=== PATIENT | male | born 1950 | race Caucasian/White ===

== ENCOUNTER 2023-08-15 13:09 | Inpatient (IN) ==
[2023-08-15] MEDS ORDERED: Lorazepam PYXIS KEY PRN ×2 (13:25→19:30)
[2023-08-15] MEDS ORDERED: LORazepam 2 mg VIAL 1 ml ONE ×2 (13:26→13:30)
[2023-08-15] MEDS: LORazepam 2 mg VIAL 1 ml IM ONE (13:41)
[2023-08-15 14:45] LABS: ABS Basophils 0.1 10^3/uL (0.0-0.1); ABS Monocytes 0.7 10^3/uL (0.0-1.1); ABS Neutrophils 6.6 10^3/uL (1.5-7.6); Eosinophil % 0.4 %; Hematocrit 41.7 % (38-53); Hemoglobin 14.1 g/dL (13.2-16.3); Lymphocyte % 11.9 %; Mean Corpuscular Hemoglobin 31.4 pg (27-33); Mean Corpuscular Hgb Conc 33.7 g/dL (31-36); Mean Corpuscular Volume 93.2 fL (80-97); Mean Platelet Volume 8.2 fL (7.5-11.2); Platelet Count 288 10^3/uL (150-450); Red Blood Count 4.47 10^6/uL (4.06-5.63); Red Cell Distribution Width 12.7 % (12-17); White Blood Count 8.3 10^3/uL (3.6-10.2)
[2023-08-15 15:05] LABS: INR 1.15 (0.83-1.13)
[2023-08-15 15:09] LABS: High Sens Troponin Baseline 16 pg/mL (<20)
[2023-08-15 15:36] LABS: ALT 15 U/L (7-52); AST 33 U/L (13-39); Acetaminophen < 15 mcg/mL; Albumin 4.3 g/dL (3.2-5.2); Albumin/Globulin Ratio 1.7 (1-3); Alcohol, S < 13 mg/dL (<13); Alkaline Phosphatase 63 U/L (35-149); Anion Gap 9 mmol/L (2-16); Blood Urea Nitrogen 32 mg/dL (6-24); C Reactive Protein 9.06 mg/L (<8.01); CO2 Carbon Dioxide 29 mmol/L (22-32); Calcium 9.2 mg/dL (8.6-10.3); Chloride 103 mmol/L (101-111); Creatine Kinase 702 U/L (10-223); Creatinine, Serum 0.75 mg/dL (0.67-1.17); Globulin 2.6 g/dL (2-4); Glucose 104 mg/dL (70-100); Lipase 11 U/L (11.0-82.0); Potassium 3.6 mmol/L (3.5-5.0); Salicylate < 2.50 mg/dL (<30); Sodium 141 mmol/L (135-145); Total Bilirubin 0.4 mg/dL (0.2-1.0); Total Protein 6.9 g/dL (6.4-8.9); eGFR CKD-EPI 95.9 (>60)
[2023-08-15 15:49] LABS: TSH Ultra Thyroid Stim Horm 2.28 mcIU/mL (0.34-5.60)
[2023-08-15 16:57] LABS: High Sensitivity Troponin 1 Hr 14 pg/mL (<20)
[2023-08-15] MEDS: NS 0.9% 1000 ml BAG 1,000 ML IV ONE (19:47)
[2023-08-15] MEDS: LORazepam 2 mg VIAL 1 ml IV PUSH ONE (19:47)
[2023-08-16 01:06] LABS: Urine Appearance Clear; Urine Bacteria Absent /HPF (Absent); Urine Bilirubin Negative (Negative); Urine Blood 1+ (Negative); Urine Color Light-Yellow; Urine Glucose Negative (Negative); Urine Ketones 2+ (Negative); Urine Nitrite Negative (Negative); Urine Protein Trace (Negative); Urine Red Blood Cell 3+(>10/hpf) /HPF (0-Trace); Urine Specific Gravity >1.050 (1.002-1.030); Urine Urobilinogen Negative (Negative); Urine White Blood Cell Trace(0-5/hpf) /HPF (0-Trace)
[2023-08-16 01:22] LABS: Urine Benzodiazepine Screen None Detected (None Detect); Urine Cannabinoids Screen Presumptive Positive (None Detect); Urine Opiates Screen None Detected (None Detect)
[2023-08-16] MEDS: NS 0.9% 1000 ml BAG 1,000 ML IV SCH (01:23)
[2023-08-16] MEDS: Enoxaparin 40 MG/0.4 ML SYR SUBCUT SCH (01:23)
[2023-08-16] MEDS ORDERED: Haloperidol 5 mg/ml SDV IV/IM 5 MG/ML AMP IV SLOW PU PRN (08:22)
[2023-08-16 09:53] LABS: ABS Basophils 0.1 10^3/uL (0.0-0.1); ABS Eosinophils 0.1 10^3/uL (0.0-0.5); ABS Lymphocytes 1.6 10^3/uL (1.0-4.8); ABS Monocytes 0.8 10^3/uL (0.0-1.1); ABS Neutrophils 7.9 10^3/uL (1.5-7.6); ABS Nucleated RBC 0.01 10^3/ul; Eosinophil % 1.1 %; Hematocrit 43.3 % (38-53); Hemoglobin 14.6 g/dL (13.2-16.3); Lymphocyte % 15.7 %; Mean Corpuscular Hemoglobin 31.8 pg (27-33); Mean Corpuscular Hgb Conc 33.7 g/dL (31-36); Mean Corpuscular Volume 94.2 fL (80-97); Mean Platelet Volume 8.2 fL (7.5-11.2); Nucleated Red Blood Cells % 0.1 %/100WBC (0.0-0.8); Platelet Count 265 10^3/uL (150-450); Red Blood Count 4.59 10^6/uL (4.06-5.63); Red Cell Distribution Width 13.1 % (12-17); White Blood Count 10.5 10^3/uL (3.6-10.2)
[2023-08-16 10:26] LABS: Calcium 8.5 mg/dL (8.6-10.3); Creatinine, Serum 0.67 mg/dL (0.67-1.17); Potassium 3.6 mmol/L (3.5-5.0); eGFR CKD-EPI 99.2 (>60)
[2023-08-16] MEDS ORDERED: Thiamine IV 100 MG/ML VIAL (only for Bannana Bags !) IVPB SCH (14:00)
[2023-08-16] MEDS: Thiamine IV 500 MG in NS 0.9% 250 ML (Wernicke-Korsakoff) IV SCH (17:53)
[2023-08-16] MEDS: Iohexol 350 (CONTRAST) 500 ML MDV IV ONE (22:34)
[2023-08-16] MEDS: cefTRIAXone 1 gm/50 mL D5W 1 GM/50 ML BAG IV SCH (22:41)
[2023-08-17] MEDS: Benzocaine/Menthol LOZ PO PRN (00:49)
[2023-08-17 06:17] LABS: ABS Basophils 0.1 10^3/uL (0.0-0.1); ABS Eosinophils 0.1 10^3/uL (0.0-0.5); ABS Lymphocytes 1.5 10^3/uL (1.0-4.8); ABS Monocytes 0.7 10^3/uL (0.0-1.1); ABS Neutrophils 5.8 10^3/uL (1.5-7.6); Eosinophil % 1.5 %; Hematocrit 38.6 % (38-53); Hemoglobin 13.2 g/dL (13.2-16.3); Lymphocyte % 18.2 %; Mean Corpuscular Hemoglobin 31.8 pg (27-33); Mean Corpuscular Hgb Conc 34.1 g/dL (31-36); Mean Corpuscular Volume 93.1 fL (80-97); Mean Platelet Volume 8.7 fL (7.5-11.2); Platelet Count 248 10^3/uL (150-450); Red Blood Count 4.15 10^6/uL (4.06-5.63); Red Cell Distribution Width 12.8 % (12-17); White Blood Count 8.1 10^3/uL (3.6-10.2)
[2023-08-17 06:32] LABS: Calcium 7.8 mg/dL (8.6-10.3); Creatinine, Serum 0.63 mg/dL (0.67-1.17); Magnesium 1.9 mg/dL (1.9-2.7); Potassium 3.6 mmol/L (3.5-5.0); eGFR CKD-EPI 101.1 (>60)
[2023-08-17 18:53] LABS: HIV 4th Generation Nonreactive (Nonreactive)
[2023-08-18] MEDS ORDERED: Thiamine IV 500 MG in NS 0.9% 250 ML (Wernicke-Korsakoff) IV SCH (15:00)
[2023-08-18] MEDS: Thiamine IV 500 MG in NS 0.9% 250 ML (Wernicke-Korsakoff) IV SCH (15:14)
[2023-08-19 06:45] LABS: Calcium 8.7 mg/dL (8.6-10.3); Creatinine, Serum 0.63 mg/dL (0.67-1.17); HDL Cholesterol 49.8 mg/dL; Potassium 3.9 mmol/L (3.5-5.0); eGFR CKD-EPI 101.1 (>60)
[2023-08-19 08:29] LABS: C Reactive Protein 8.45 mg/L (<8.01)
[2023-08-19] MEDS: Thiamine IV 500 MG in NS 0.9% 250 ML IV SCH (10:53)
[2023-08-19] MEDS ORDERED: Haloperidol 5 mg/ml SDV IV/IM 5 MG/ML AMP IM PRN (17:58)
[2023-08-20 19:14] VITALS: BP 152/79
== END 2023-08-20 20:23 | DRG 885 ==
LOC: ED 13:09 → EDHOLD 13:09 → SUATTDRO 08-16 00:21 → SSU 08-16 07:50
PROVIDERS: ADMIT Student in an Organized Health Care Education/Training Program; ATTEND Internal Medicine

== ENCOUNTER 2023-08-20 20:24 | Inpatient (IN) ==
[2023-08-20] MEDS ORDERED: Al Hydrox/Mg Hydrox/Simet LIQ 30 ML UDC PO PRN (22:18)
[2023-08-21 08:06] LABS: HDL Cholesterol 55.8 mg/dL
[2023-08-21] MEDS: Vitamin THERAPEUTIC TAB PO SCH (10:21)
[2023-08-26 11:16] VITALS: BP 125/68
== END 2023-08-26 12:10 | disposition home or self-care (01) | DRG 885 ==
LOC: BSU 20:24
PROVIDERS: ADMIT Psychiatry & Neurology Psychiatry; ATTEND Psychiatry & Neurology Psychiatry